=== PATIENT | male | born 1985 | race Caucasian/White ===

== ENCOUNTER 2021-07-21 18:14 | Emergency (ER) | payer OTHER ==
[~2021-07-21] VITALS: Ht 182.9 cm; Wt 90.7 kg
[2021-07-21 18:40] VITALS: BP 140/72
--- NOTE | 2021-07-21 19:45 | NUR ---
36/M BIB SELF C/O LAC WOUND TO RIGHT RING FINGER S/P CUT BY BLADE X TODAY. PATIENT STATED HE HAD NO PAIN AT THIS TIME. RR EVEN AND UNLABORED. PATIENT AAOX4 AND AMBULATORY. BED LOW AND LOCKED. SIDE RAIL UP FOR SAFETY. ALL NEEDS MET AT THIS TIME. PMHX DENIES MEDS DENIES NKA
--- NOTE | 2021-07-21 20:00 | NUR ---
MD SORIANO AT BEDSIDE
[2021-07-21] MEDS ORDERED: IBUP-2213 PO (20:05)
--- NOTE | 2021-07-21 20:31 | NUR ---
MD SORIANO AT BEDSIDE
[2021-07-21 20:42] VITALS: BP 138/89
--- NOTE | 2021-07-21 20:42 | NUR ---
Chart checked and completed.
--- NOTE | 2021-07-21 20:42 | NUR ---
Patient discharged with v/s stable. Written and verbal after care instructions given on [place] and explained. Patient alert, oriented and verbalized understanding of instructions. Ambulatory with steady gait. All questions addressed prior to discharge. ID band removed. Patient advised to follow up with PMD. Rx of Ibuprofen given.
== END 2021-07-21 20:42 | disposition home or self-care (01) ==
LOC: MED 18:14
DX: S61.312A Laceration without foreign body of right middle finger with damage to nail, initial encounter (principal); X58.XXXA Exposure to other specified factors, initial encounter; Y93.89 Activity, other specified; Y92.89 Other specified places as the place of occurrence of the external cause; Y99.8 Other external cause status
CPT/HCPCS: 12001; 90471; 90715; 99283